=== PATIENT | male | born 1960 | race Caucasian/White ===

== ENCOUNTER 2020-11-10 11:39 | Outpatient (REF) | payer OTHER, SELFPAY | END 2020-11-10 11:40 | disposition home or self-care (01) | LOC: HO.LAB 11:39 | PROVIDERS: Visit Provider Internal Medicine | DX: Z20.828 Contact with and (suspected) exposure to other viral communicable diseases (principal) | CPT/HCPCS: C9803; U0003 ==

== ENCOUNTER 2025-05-26 20:19 | Emergency (ER) | payer OTHER, SELFPAY ==
--- NOTE | 2025-05-26 | ECG_ITS ---
Test Reason : substance abuse Blood Pressure : */* mmHG Vent. Rate : 112 BPM Atrial Rate : * BPM P-R Int : * ms QRS Dur : 110 ms QT Int : 324 ms P-R-T Axes : * 10 130 degrees QTcB Int : 442 ms Atrial fibrillation with rapid ventricular response ST & T wave abnormality, consider lateral ischemia Abnormal ECG No previous ECGs available Referred By: Generic ED Physician Electronically Signed By: Neo Lopez
--- NOTE | ~2025-05-26 | XR_ITS ---
CLINICAL HISTORY: forceful vomiting, feels like FB 2 views soft tissue neck Comparison: None provided Findings No acute fractures or dislocation. Normal epiglottis. No prevertebral soft tissue swelling. No radiopaque foreign body. IMPRESSION: No acute findings This document has been electronically signed by: Bradley Peter MD on 05/26/2025 23:19:46
--- NOTE | ~2025-05-26 | XR_ITS ---
CLINICAL HISTORY: chest pain after vomiting eval for free air EXAM: Two views of the chest. COMPARISON: None FINDINGS: Normal cardiac, mediastinal, and hilar contours. Normal heart size. No pleural effusion or pneumothorax. Lungs are clear. No acute bone finding. IMPRESSION: 1. No acute cardiopulmonary process demonstrated. This document has been electronically signed by: Bradley Peter MD on 05/26/2025 23:18:04
[2025-05-26 20:32] VITALS: BP 60/40; BP 98/59; PULSE 114; PULSE 130; RESP 16; TEMP 36.6; O2SAT 96; BMI 41.2
--- NOTE | 2025-05-26 20:46 | PC.NURSE ---
Arvin STORM notified of pts blood pressure and HR. pt skin wpd. 2nd iv established. lab orders placed per PA verbal order. ekg being obtained currently. pt is axox4. son at bedside.
[2025-05-26 20:57] LABS: MANUAL DIFF FLAG NO
[2025-05-26 20:59] LABS: Hematocrit 43.3 % (42.0-52.0); Hemoglobin 15.7 g/dl (14.0-18.0); Imm Gran Abs Auto 0.07 X10*3/uL (0.00-0.03); Imm Gran Pct Auto 0.4 % (0.0-0.4); Lymphocytes Absolute Auto 2.6 X10*3/uL (1.2-4.9); Mean Corpuscular HGB Conc 36.3 g/dl (31.0-36.0); Mean Corpuscular Hemoglobin 33.1 pg (27.0-33.0); Mean Corpuscular Volume 91.2 fL (80.0-98.0); NRBC Abs Auto 0.000 X10*3/uL (0.0-0.012); NRBC Pct Auto 0.0 /100WBC (0.0-0.2); Platelet Count 320 X10*3/uL (160-400); Red Blood Count 4.75 X10*6/uL (4.60-5.80); White Blood Count 17.0 X10*3/uL (4.8-10.8)
[2025-05-26 21:04] LABS: INTERNATIONAL NORM RATIO 1.0 (0.9-1.1); Prothrombin Time 11.5 SEC (10.9-12.4)
[2025-05-26 21:15] LABS: Alanine Aminotransferase 7 U/L (0-40); Albumin Level 3.6 g/dL (3.5-5.0); Alkaline Phosphatase 119 U/L (39-117); Anion Gap 15 (12-20); Aspartate Amino Transferase 15 U/L (5-37); Blood Urea Nitrogen 18 mg/dL (9-16); Calcium 8.7 mg/dL (8.4-10.2); Carbon Dioxide 29 mmol/L (22-29); Chloride 97 mmol/L (96-108); Creatinine Clr Calc Pharmacy 97.1; Estimated Glomerular Filt Rate > 60; Lipase 24 U/L (8-78); Magnesium 1.7 mg/dL (1.6-2.6); Potassium 3.6 mmol/L (3.3-5.1); Sodium 137 mmol/L (135-145); Total Protein 7.2 g/dL (6.5-8.0)
--- NOTE | 2025-05-26 21:18 | ED.GENADULT ---
HPI - General Adult General Chief complaint: General Medical Stated complaint: vomiting blood x 3 days Time Seen by Provider: 05/26/25 21:18 Source: patient, EMS and RN notes reviewed Mode of arrival: EMS Limitations: no limitations History of Present Illness ED Provider: Dr. Lida Parks HPI narrative: 64-year-old male with history of bilateral AKA, housing insecurity presenting with sore throat and hematemesis ongoing for the last 24 hours or so after smoking crack on the 24 of May. Patient denies frequent crack cocaine use but admits that he ?thinks that he smoked and inhaled a piece of chart and it stuck in his throat?. States that he has been having irritation in the back of his throat since he woke up on the . Has been having multiple episodes of vomiting and is now seeing dark red blood mixed in his vomit. Describes some upper substernal chest discomfort associated with this as well. Denies associated fever or chills. His nausea is improving since arriving in the emergency department. Denies bowel changes or urinary complaints. No cough or shortness of breath. Related Data Previous Rx's ?Medication ?Instructions ?Recorded apixaban 5 mg tablet 5 mg PO BID #120 tabs 05/26/25 Allergies Allergy/AdvReac Type Severity Reaction Status Date / Time No Known Allergies Allergy Verified 05/26/25 20:37 Review of Systems Review of Systems: As per HPI Yes all other systems are reviewed and are negative [facility] Past Medical History Attestation statement: The following information was validated with the patient. [facility] Narrative: Denies medical history, former alcohol use disorder no alcohol since the , housing and security lives in [place] [facility] Social History Social History Smoked in Last 30 Days: Yes Substance Use Type: Crack/Cocaine Advance Directives: No Advance Directives Information Provided: Yes Do you have a plan to hurt others: No Plan Physical Exam ED Vital Signs: Vital Signs - 24 hr 05/26/25 20:32 05/26/25 22:21 Temperature 97.8 F 97.8 F Pulse Rate 114 H 109 H Respiratory Rate 16 16 Blood Pressure 98/59 L 114/71 Pulse Oximetry 96 96 Oxygen Delivery Method Room Air Room Air BMI result Body Mass Index 41.2 GENERAL: Unkempt, no acute distress. SKIN: Normal skin color for ethnicity, warm, dry, no rashes noted. HEENT: Normocephalic, atraumatic, no stridor, posterior oropharynx slightly erythematous without exudates, poor chilkoot dentition, EOMI. NECK: Soft, supple, full ROM, midline structures nontender, no step-offs, no deformities, no lymphadenopathy. CHEST: Heart irregularly irregular tachycardia, no murmurs, symmetric chest rise and fall. PULMONARY: Clear to auscultation bilaterally, no labored breathing, no wheezes/rhales/rhonchi. ABDOMINAL: Soft, nondistended, nontender, positive bowel sounds in all quadrants. : Deferred. MUSCULOSKELETAL: Normal tone, full range of motion, bilateral AKA, no peripheral edema. NEURO: Alert and oriented x3, CN II through XII intact, equal strength and sensation bilateral upper and lower extremities, no focal neurologic deficits. PSYCHIATRIC: Flat affect, poor eye contact, withdrawn Medications Administered Discontinued Medications Generic Name Dose Route Start Last Admin Trade Name Freq PRN Reason Stop Dose Admin Al Hydroxide/Mg Hydroxide 15 ml 05/26/25 21:35 05/26/25 22:13 Magnesium Hydrox/Alum Hydrox 30 Ml Oral.Susp PO 05/26/25 21:36 15 ml ONCE ONE Administration Lactated Ringer's 1,000 mls @ 999 mls/hr 05/26/25 21:35 05/26/25 22:14 Lr IV 05/26/25 22:35 999 mls/hr .Q1H1M ONE Administration Lidocaine HCl 15 ml 05/26/25 21:35 05/26/25 22:13 Lidocaine Hcl Viscous 2 % 15 Ml Solution MUCOUS MEM 05/26/25 21:36 15 ml ONCE ONE Administration Ondansetron HCl 4 mg 05/26/25 21:35 05/26/25 22:15 Ondansetron Hcl 4 Mg/2 Ml Vial IVPUSH 05/26/25 21:36 4 mg ONCE ONE Administration Medical Decision Making Medical Decision Making MDM Narrative: Patient presents today with a chief complaint of sore throat. Differential diagnosis includes pharyngitis as well as ENT emergencies such as epiglottitis, retropharyngeal abscess, peritonsillar abscess, Rubén's angina, angioedema, allergic reaction, among many others. On exam, patient is nontoxic, tolerating their secretions, without signs of respiratory distress. 9:58 p.m. Patient noted to have an elevated white blood cell count without significant signs of infection aside from potential strep throat. He has no fever and I suspect his tachycardia is related to crack cocaine use and slight dehydration. He has been vomiting all day which could also be why his white blood cell count is elevated secondary to demargination. We will hydrate with LR, medicate for pain with GI cocktail and Zofran for nausea. He is not significantly anemic and is otherwise resting comfortably. 11:47 p.m. patient feeling improved after GI cocktail. No further emesis. Blood work is reassuring despite his elevated white blood cell count which I suspect is secondary to vomiting. Cardiac enzyme is low. His blood sugar is elevated but he is not in DKA. X-ray shows no free air. Vital signs remained stable. He has known atrial fibrillation which he now tells me. Admits that he is previously on Eliquis however, he has been off of this medication since he became homeless. 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 At this point I feel he is stable for discharge. Discussed importance of follow-up with primary care for continued Eliquis prescriptions and further workup. He understands and agrees with plan for discharge. Discharged home in stable condition. Differential Diagnosis Differential Diagnoses: The differential diagnosis associated with the presentation includes (as above) Admission/Observation Consideration of admission/observation: Escalation of care including admission/observation considered Lab Data MDM Lab Attestation statement: I reviewed the patient's lab results. 05/26/25 20:46 05/26/25 20:47 Labs: Lab Results 05/26/25 05/26/25 05/26/25 Range/Units 20:46 20:47 22:02 WBC 17.0 H (4.8-10.8) X10*3/uL RBC 4.75 (4.60-5.80) X10*6/uL Hgb 15.7 (14.0-18.0) g/dl Hct 43.3 (42.0-52.0) % MCV 91.2 (80.0-98.0) fL MCH 33.1 H (27.0-33.0) pg MCHC 36.3 H (31.0-36.0) g/dl RDW 12.4 (11.0-16.0) % Plt Count 320 (160-400) X10*3/uL MPV 9.2 L (9.4-12.4) fL Immature Gran % (Auto) 0.4 (0.0-0.4) % Neut % (Auto) 76.7 H (45-73) % Lymph % (Auto) 15.1 L (20-40) % Randall % (Auto) 7.1 (2-11) % Eos % (Auto) 0.4 (0-4) % Baso % (Auto) 0.3 (0-2) % Lymph # (Auto) 2.6 (1.2-4.9) X10*3/uL Randall # (Auto) 1.2 (0.1-1.2) X10*3/uL Eos # (Auto) 0.1 (0.0-0.4) X10*3/uL Baso # (Auto) 0.1 (0.0-0.2) X10*3/uL Abs Immat Gran (auto) 0.07 H (0.00-0.03) X10*3/uL Absolute Neuts (auto) 13.0 H (2.0-8.3) x10*3/uL Absolute Nucleated RBC 0.000 (0.0-0.012) X10*3/uL Nucleated RBC % (auto) 0.0 (0.0-0.2) /100WBC Hold Purple Top SEE NOTE PT 11.5 (10.9-12.4) SEC INR 1.0 (0.9-1.1) Sodium 137 (135-145) mmol/L Potassium 3.6 (3.3-5.1) mmol/L Chloride 97 (96-108) mmol/L Carbon Dioxide 29 (22-29) mmol/L Anion Gap 15 (12-20) BUN 18 H (9-16) mg/dL Creatinine 0.87 (0.5-1.4) mg/dL Estim Creat Clear Calc 97.1 Estimated GFR > 60 Random Glucose 366 H* (60-115) mg/dL Calcium 8.7 (8.4-10.2) mg/dL Magnesium 1.7 (1.6-2.6) mg/dL Total Bilirubin 0.8 (0.0-1.0) mg/dL AST 15 (5-37) U/L ALT 7 (0-40) U/L Alkaline Phosphatase 119 H (39-117) U/L Troponin I High Sens 9.0 (<3.5-35.0) ng/L Total Protein 7.2 (6.5-8.0) g/dL Albumin 3.6 (3.5-5.0) g/dL Lipase 24 (8-78) U/L S. pyogenes GrpA LORRI Negative (Negative) Blood Type O Positive Antibody Screen POSITIVE Independent Interpretation I performed an independent interpretation of an: EKG and Plain X-Ray (No free air noted in the chest or soft tissue neck x-rays, no infiltrates, no foreign body.) Interpretation: My independent interpretation of the ECG reveals atrial fibrillation with RVR rate of 112, normal axis, normal intervals, rate related ST changes. No previous for comparison Radiology Impression Discussion of test interpretation with radiology: I have reviewed the radiologist's reading. Independent Historian Clinical information obtained from an independent historian. History obtained from or confirmed by: EMS Prescription Management I considered prescription management with: Other (Anticoagulation) Chronic Conditions Patient?s care impacted by: Other (Atrial fibrillation) Social Determinants Patient?s care significantly limited by Social Determinants of Health including: Inadequate housing, Problems related to primary support group and Unemployment Discharge Plan Discharge Clinical Impression: Hematemesis with nausea, Acute chest pain, History of atrial fibrillation without current medication, Housing insecurity Patient Disposition: Home, Self-Care Instructions: Stroke Prevention (ED), Hematemesis (ED) Additional Instructions: 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 Take this medication every day to prevent strokes. Follow-up with your primary care doctor to write this prescription more chronically. Return to the emergency department with any new or worsening symptoms including: Worsening chest pain, difficulty breathing, continued bloody vomit, any new symptom that concerns you. Call 911 with any medical emergency. Prescriptions: New apixaban 5 mg tablet 5 mg PO BID Qty: 120 0RF Print Language: Danish
[2025-05-26 22:01] LABS: Troponin-I High Sensitivity 9.0 ng/L (<3.5-35.0)
[2025-05-26] MEDS: Magnesium Hydrox/Alum Hydrox 30 ML ORAL.SUSP 15 ML PO (22:13)
[2025-05-26] MEDS: Lidocaine HCl Viscous 2 % 15 ML SOLUTION MUCOUS MEM (22:13)
[2025-05-26] MEDS: Lactated Ringers 1,000 ML 999 ML IV (22:14)
[2025-05-26 22:21] VITALS: BP 114/71; PULSE 109; RESP 16; TEMP 36.6; O2SAT 96
[2025-05-26 23:17] LABS: IDNOW Serial# 58CA691E; Strep A Nucleic Acid Negative (Negative)
[2025-05-26 23:50] VITALS: BP 118/62; PULSE 97; RESP 24; O2SAT 97
[2025-05-26 23:53] VITALS: BP 125/76; PULSE 100; RESP 16; TEMP 36.7; O2SAT 96
[2025-05-27 00:23] VITALS: BP 125/76; PULSE 100; RESP 16; TEMP 36.7; O2SAT 96
== END 2025-05-27 01:30 | disposition home or self-care (01) ==
PROVIDERS: Emergency Provider Emergency Medicine
DX: K92.0 Hematemesis (principal); R07.89 Other chest pain; F14.10 Cocaine abuse, uncomplicated; I48.91 Unspecified atrial fibrillation; R94.31 Abnormal electrocardiogram [ECG] [EKG]; J02.9 Acute pharyngitis, unspecified; Z79.899 Other long term (current) drug therapy
CPT/HCPCS: 36415; 70360; 71046; 80053; 83690; 83735; 84484; 85025; 85610; 86850; 86870; 86900; 86901; 86902; 86905; 86920; 86922; 87651; 93005; 96361; 96374; 99284; J2405; J7120

== ENCOUNTER → 2025-05-26 20:38 | Outpatient (BNV) | payer OTHER, SELFPAY | PROVIDERS: Emergency Provider Emergency Medicine; Visit Provider Internal Medicine Cardiovascular Disease | DX: I48.91 Unspecified atrial fibrillation (principal) | CPT/HCPCS: 93010 ==

== ENCOUNTER → 2025-05-26 21:59 | Outpatient (BNV) | payer OTHER, SELFPAY | PROVIDERS: Emergency Provider Emergency Medicine; Visit Provider Radiology Diagnostic Radiology | DX: R07.9 Chest pain, unspecified (principal); R11.10 Vomiting, unspecified | CPT/HCPCS: 70360; 71046 ==